=== PATIENT | female | born 1990 | race Two or more races ===

== ENCOUNTER → 2016-05-17 11:55 | Outpatient (CLI) | payer MEDICAID ==
[2015-02-08 12:28] VITALS: BMI 22.8
[~2016-05-17 11:55] MED LIST: HYDROCODON-ACE1 EAC7 PO; IBUPROFEN600 MG PO; PERCOCET 5-3251 TAB PO; PRENAVITE1 TAB PO
== END | disposition home or self-care (01) ==
LOC: D.US 11:30
DX: N63 Unspecified lump in breast (principal)

== ENCOUNTER 2016-06-17 01:50 | Inpatient (IN) | payer MEDICAID ==
[~2016-06-17] VITALS: Ht 152.4 cm; Wt 54.4 kg
[~2016-06-17 01:50] MED LIST changes: -PERCOCET 5-3251 TAB PO; -PRENAVITE1 TAB PO
[2016-06-17] MEDS ORDERED: PRENAVITE1 TAB PO (02:29)
[2016-06-17 02:48] VITALS: BP 123/69; Ht 152.4 cm; Wt 54.4 kg
[2016-06-17 02:55] LABS: HEMATOCRIT 35.8 % (36.0-48.0); HEMOGLOBIN 11.8 g/dL (12-16); MCH 32.1 pg (26.0-34.0); MCV 97.3 fL (80.0-100.0); MEAN PLATELET VOLUME 10.9 fL (7.4-10.4); RBC 3.68 10x6/uL (4.00-5.40); RDW 12.9 % (11.5-14.5); WBC 9.7 10x3/uL (4.8-10.8)
[2016-06-17 03:04] LABS: APPEARANCE CLOUDY (CLEAR); BILIRUBIN NEGATIVE (NEGATIVE); COLOR YELLOW (YELLOW); GLUCOSE NEGATIVE (NEGATIVE); KETONE SMALL mg/dL (NEGATIVE); LEUKOCYTE ESTERASE TRACE (NEGATIVE); NITRITE NEGATIVE (NEGATIVE); PH 5.5 (5.0-6.0); PROTEIN NEGATIVE (NEGATIVE); UROBILINOGEN NORMAL (NORMAL)
[2016-06-17 03:09] LABS: AMORPHOUS SEDIMENT <1+ /lpf (NONE SEEN); BACTERIA MANY /hpf (NONE SEEN); GRANULAR CAST RARE /lpf (NONE SEEN); HYALINE CAST OCC /lpf (NONE SEEN); MUCUS <1+ /lpf (NONE SEEN); RED CELLS - URINE 0-5 /hpf (0-5)
[2016-06-17 07:15] VITALS: BP 99/70
--- NOTE | 2016-06-17 07:15 | NUR ---
PT WAS RECEIVED IN LABOR AND DELIVERY AND PT WAS MOVED TO [facility]. PT AMBULATED TO ROOM AND TOLERATED WELL ALONG WITH HER . GEN- AWAKE AND ALERT. LUNGS- CLEAR. HEART- RRR. ABD- SOFT WITH TENDERNESS NOTED. FUNDUS FIRM. SMALL LOCIA RUBRA. SALINE LOCK NOTED R FOREARM- PATENT. PT C/O PAIN BEING A 5. PERCOCET 5/325 GIVEN. ONE PO GIVEN. BED IS LOW, SIDE RAILS UP X 2 AND CALL LIGHT IN REACH.
--- NOTE | 2016-06-17 08:17 | NUR ---
PT IS RESTING IN BED. OFFERS NO COMPLAINTS.
--- NOTE | 2016-06-17 10:00 | NUR ---
PT IS RESTING IN BED HOLDING BABY. IS AT BEDSIDE. PT OFFERS NO COMPLAINTS.
--- NOTE | 2016-06-17 12:25 | NUR ---
PT OFFERS NO COMPLAINTS. FAMILY AT BEDSIDE. BABY AT BEDSIDE. BED IS LOW, SIDE RAILS UP AND CALL LIGHT IN REACH.
--- NOTE | 2016-06-17 13:32 | NUR ---
PT IS RESTING IN BED. OFFERS NO COMPLAINTS. DOES NOT WANT ANY PAIN MED. SHE STATES THAT SHE IS FINE. AT BEDSIDE.
--- NOTE | 2016-06-17 13:53 | NUR ---
PT STATES HER PAIN IS A 3 . SHE WOULD LIKE PAIN MED. GIVEN.
--- NOTE | 2016-06-17 14:51 | NUR ---
PT IS LYING IN BED WITH . TRYING TO GO TO SLEEP. HER PAIN LEVEL IS 0 AFTER TAKING PERCOCET. SIDE RAILS UP X 2. CALL LIGHT IN REACH. BED IS LOW.
--- NOTE | 2016-06-17 18:24 | NUR ---
PT IS SITTING UP IN BED VISITING WITH FAMILY. SHE OFFERS NO COMPLAINTS. BED IS LOW, SIDE RAILS UP X 2 AND CALL LIGHT IN REACH.
[2016-06-17 19:30] VITALS: BP 101/61
--- NOTE | 2016-06-17 19:30 | NUR ---
ASSESSMENT PER FLOW SHEET, VS OBTAINED, SALINE LOCK IN RIGHT FA INTACT WITH NO REDNESS OR EDEMA, FF, ML, U/1, PT REPORTS HEAVY BLEEDING, PAD NOTED TO NEEDING CHANGING, I ASKED PT WHEN SHE LAST CHANGED HER PAD, PT REPORTS CHANGING IT 3 HOURS AGO, PT REPORTS FLATUS, NO BM AND VOIDING BY SELF WITH NO DIFFICULTY, PT RATES CRAMPING 3/10, REQUESTS PAIN MED, INFORMED PT THAT I WILL ADM IT, BABY TO NSY VIA OPEN CRIB CART PER NSY NURSE FOR ASSESSMENT, FOB AND FAMILY AT BEDSIDE
--- NOTE | 2016-06-17 19:43 | NUR ---
ADM PERCOCET PO PER MD ORDERS, SEE EMAR, PT DENIES FURTHER NEEDS
--- NOTE | 2016-06-17 20:20 | NUR ---
PT SITTING UP IN BED, FOB HOLDING BABY, PT DENIES NEEDS OR PAIN AT THIS TIME
--- NOTE | 2016-06-17 21:13 | NUR ---
PT SITTING UP IN BED, FOB TRYING TO FEED BABY, PT STATES "I CAN'T GET HER TO EAT", INFORMED PT THAT I WILL HAVE NSY NURSE COME IN TO ASSIST, ABOUT THIS TIME, OTTO MAST RN, NSY NURSE COMES TO ROOM, ADM MOM PO PER MD ORDERS, SEE EMAR, PT DENIES FURTHER NEEDS OR PAIN, NSY NURSE ASSISTS PT WITH FEEDING
--- NOTE | 2016-06-17 22:27 | NUR ---
PT RESTING WITH EYES CLOSED, RESP QUIET, NO DISTRESS NOTED, LEFT UNDISTURBED AT THIS TIME, FOB ASLEEP IN BED WITH PT
--- NOTE | 2016-06-18 00:14 | NUR ---
PT RESTING WITH EYES CLOSED, RESP QUIET, NO DISTRESS NOTED, LEFT UNDISTURBED AT THIS TIME, FOB ASLEEP IN BED WITH PT
--- NOTE | 2016-06-18 02:00 | NUR ---
PT RESTING WITH EYES CLOSED, RESP QUIET, NO DISTRESS NOTED, LEFT UNDISTURBED AT THIS TIME, FOB ASLEEP IN BED WITH PT
--- NOTE | 2016-06-18 04:40 | NUR ---
PT RESTING WITH EYES CLOSED, RESP QUIET, NO DISTRESS NOTED, LEFT UNDISTURBED AT THIS TIME, FOB ASLEEP IN BED WITH PT
--- NOTE | 2016-06-18 05:54 | NUR ---
LAB TO ROOM FOR AM BLOOD DRAW
[2016-06-18 06:14] LABS: RAPID PLASMA REAGIN Non Reactive (Non Reactive)
--- NOTE | 2016-06-18 06:15 | NUR ---
PT UP AT SINK BRUSHING TEETH, DENIES NEEDS OR PAIN AT THIS TIME, FOB SITTING UP IN BED
[2016-06-18 06:45] LABS: BASOPHILS 0.1 % (0.0-2.0); EOSINOPHILS 0.9 % (0-7); HEMATOCRIT 32.3 % (36.0-48.0); HEMOGLOBIN 10.7 g/dL (12-16); IMMATURE GRANULOCYTES 0.3 % (0-5); LYMPHOCYTES 28.4 % (15-50); MCH 32.6 pg (26.0-34.0); MCHC 33.1 g/dL (31.0-37.0); MCV 98.5 fL (80.0-100.0); MEAN PLATELET VOLUME 10.1 fL (7.4-10.4); MONOCYTES 5.9 % (2-11); NEUTROPHILS 64.4 % (40-80); PLATELET COUNT 187 10x3/uL (130-400); RBC 3.28 10x6/uL (4.00-5.40); RDW 13.3 % (11.5-14.5); WBC 7.8 10x3/uL (4.8-10.8)
--- NOTE | 2016-06-18 07:00 | NUR ---
SHIFT REPORT TO JORGE MARSHALL RN
--- NOTE | 2016-06-18 07:30 | NUR ---
PATIENT IS RESTING IN HER BED, HOB UP 45 DEGREES. SHE IS BREAST FEEDING. SHE DENIES DISCOMFORT AND NEEDS. DENIES HEAVY BLEEDING. FOB AT THE BEDSIDE. CALL LIGHT WITHIN REACH. WILL ASSESS AFTER FEEDING COMPLETE.
--- NOTE | 2016-06-18 08:21 | NUR ---
PATIENT UP IN THE SHOWER. DENIES NEEDS. FOB HOLDING , RECLINED ON THE BED. REQUESTED THAT THEY CALL WHEN SHE IS BACK TO BED SO THAT I CAN TAKE VS'S.
--- NOTE | 2016-06-18 09:40 | NUR ---
PATIENT VSS, STATES THAT HER PAIN IS A 4-5, REQUESTS PAIN MEDICATION. GIVEN ALONG WITH EDUCATION ABOUT THE WAYS EACH WORK TO MANAGE HER PAIN. HER PRIMARY COMPLAINT IS CRAMPS AND PRESSURE IN HER PERITONEAL AREA. FOB AT THE BEDSIDE AND VERY HELPFUL TO HER. FRESH WATER PROVIDED. IV SL REMOVED FROM THE RIGHT FA DUE TO IRRITATION. SHE DENIED OTHER NEEDS. MONITORING.
--- NOTE | 2016-06-18 10:49 | NUR ---
PATIENT RESTING IN HER BED, DENIES PAIN. HER MOTHER, SISTER AND TODDLER SON ARE AT THE BEDSIDE. SHE IS SMILING AND INTERACTING. DENIED NEEDS. MONTIORING.
--- NOTE | 2016-06-18 12:12 | NUR ---
PATIENT IS SITTING UP VISITING WITH HER VISITORS. NO NEEDS NOTED/VOICED. CALL LIGHT IS WITHIN HER REACH. ENCOURAGED HER TO NOTIFY ME OF ANY NEEDS.
--- NOTE | 2016-06-18 13:56 | NUR ---
PATIENT SITTING UP STYLE ON THE BED WITH HER TODDLER. FEMALE VISITOR AT THE BEDSIDE HOLDING INFANT. FOB IS AT THE BEDSIDE WELL, EATING MEAL. PATIENT DENIES PAIN/NEEDS.
[2016-06-18 16:20] VITALS: BP 92/53
--- NOTE | 2016-06-18 16:20 | NUR ---
PATIENT RESTING QUIETLY, EYES CLOSED. WITH HOB UP 30 DEGREES. FOB ASLEEP AT HER SIDE. VSS, DENIES NEEDS/PAIN.
--- NOTE | 2016-06-18 18:08 | NUR ---
PATIENT WITHOUT STATED NEEDS AT THIS TIME. DENIES PAIN.
[2016-06-18 19:35] VITALS: BP 102/74
--- NOTE | 2016-06-18 19:35 | NUR ---
PT RECIEVED SITTING UP ON SIDE OF BED WITH INFANT AT BEDSIDE. VSS. PT RATES PAIN 2/10. HEART RRR. LUNG SOUNDS CLEAR BILATERALLY. BOWEL SOUNDS ACTIVE X4 QUADRENTS. FFM. SCANT LOCHIA NOTED TO [place]ER[place] PAD. NO LACERATIONS NOTED TO PERINEAL AREA. PT STATES LOCHIA HAS BEEN LIGHT TO MODERATE. PT DENIES NEEDS AT THIS TIME. BED LOW. PHONE AND CALL LIGHT IN REACH. SRX2.
--- NOTE | 2016-06-18 20:58 | NUR ---
PT LYING IN BED WITH ON CHEST. FAMILY MEMBERS AT BEDSIDE. DENIES NEEDS AT THIS TIME. BED LOW. PHONE AND CALL LIGHT IN REACH. SRX2.
--- NOTE | 2016-06-18 21:27 | NUR ---
ADMINISTERED MILK OF MAG AT THIS TIME. PT DENIES OTHER NEEDS. ON CHEST. FAMILY MEMBERS AT BEDSIDE. BED LOW. PHONE AND CALL LIGHT IN REACH. SRX2.
--- NOTE | 2016-06-18 22:45 | NUR ---
PT SITTING UP IN CHAIR. FOB AND INFANT AT BEDSIDE. PT REQUESTS MEDICATION FOR PAIN 08/28. ADMINISTERED MOTRIN AND PERCOCET PO PER ORDERS AT THIS TIME. PT DENIES NEEDS. BED LOW. PHONE AND CALL LIGHT IN REACH. SRX2.
[2016-06-19 00:07] VITALS: BP 94/58
--- NOTE | 2016-06-19 00:07 | NUR ---
PT RESTING QUIETLY AT THIS TIME AROUSED EASILY. RATES PAIN 05/31. BP-94/58 O2-98% ROOM AIR. P-74. RESP 16 EVEN, NON-LABORED. PT DENIES NEEDS AT THIS TIME. BED LOW. PHONE AND CALL LIGHT IN REACH. SRX2.
--- NOTE | 2016-06-19 02:03 | NUR ---
PT RESTING QUIETLY IN BED LOOKING AT CELL PHONE. DENIES NEEDS. BED LOW. PHONE AND CALL LIGHT IN REACH. SRX2.
[2016-06-19 04:00] VITALS: BP 93/58
--- NOTE | 2016-06-19 04:00 | NUR ---
PT RESTING QUIETLY AT THIS TIME WITH EYES CLOSED. AROUSED EASILY. BP-93/58 P-79 RESP-18 EVEN, NON-LABORED O2-100% ROOM AIR. PT DENIES NEEDS. BED LOW. PHONE AND CALL LIGHT IN REACH. SRX2.
--- NOTE | 2016-06-19 05:25 | NUR ---
PT RESTING QUIETLY AT THIS TIME WITH EYES CLOSED. RESPIRATIONS EVEN, NON-LABORED. NO ACUTE DISTRESS NOTED AT THIS TIME. FOB RECLINED IN BED BESIDE PT. BED LOW. PHONE AND CALL LIGHT IN REACH. SRX2.
--- NOTE | 2016-06-19 07:30 | NUR ---
PT WAS RECEIVED SITTING UP IN BED, BREATFEEDING BABY. SHE OFFERS NO COMPLAINTS. SHE STATES THAT HER PAIN IS ABOUT A 2. SHE DOES NOT WANT ANY PAIN MED AT THIS TIME. HER IS AT BEDSIDE. PT WAS SITTING UP IN HER BED. HER BABY. VSS. PT STATES HER PAIN IS ABOUT A 2 BUT DOES NOT WANT PAIN MED. GEN- AWAKE AND ALERT. LUNGS- CLEAR. HEAR- RRR. ABD- SOFT WITH TENDERNESS. SMALL LOCIA RUBRA. EXT- NO EDEMA. BED IS LOW. SIDE RAILS UP X 2 AND CALL LIGHT IN REACH.
[2016-06-19] MEDS ORDERED: PERCOCET 5-3251 TAB PO (08:20)
[2016-06-19] MEDS ORDERED: IBUPROFEN600 MG PO (08:20)
--- NOTE | 2016-06-19 08:20 | NUR ---
DR BRYAN HERE TO SEE PT. SHE WILL DISCHARGE PT HOME TODAY. NEW ORDERS NOTED.
[2016-06-19 09:17] VITALS: BP 103/68
--- NOTE | 2016-06-19 09:20 | NUR ---
PT IS LYING IN BED. SHE OFFERS NO COMPLAINTS. STATES THAT SHE IS NOT HAVING ANY PAIN. THEY ARE READY FOR DISCHARGE.
--- NOTE | 2016-06-19 11:45 | NUR ---
PT IS DISCHAGED HOME. DISCHARGE INSTRUCTIONS DISCUSSED WITH PT AND HANDOUTS GIVEN. FU APPT CARD AND PRESCRIPTIONS ALSO GIVEN. PT WAS TAKEN TO TO THE FRONT ENTRANCE OF THE HOSPITAL.
== END 2016-06-19 13:22 | disposition home or self-care (01) | DRG 775 ==
LOC: D.LD 01:50 → D.WS 07:00
PROVIDERS: ADMIT Specialist
PROC: 10E0XZZ Delivery of Products of Conception, External Approach (ICD-10-PCS; principal; 2016-06-17)
DX: O60.14X0 Preterm labor third trimester with preterm delivery third trimester, not applicable or unspecified (principal); O09.33 Supervision of pregnancy with insufficient antenatal care, third trimester; Z3A.35 35 weeks gestation of pregnancy; Z37.0 Single live birth